=== PATIENT | male | born 1960 ===

== ENCOUNTER 2019-07-23 11:10 | Emergency (ER) | payer SELFPAY ==
[2019-07-23] MEDS ORDERED: ASPIRIN 325 MG TAB PO ONE (11:18)
[2019-07-23 11:52] LABS: Basophils # (Auto) 0.1 K/mm3 (0.0-0.1); Basophils % (Auto) 2.2 % (0.0-1.8); Eosinophils % (Auto) 0.9 % (0.0-4.3); Hematocrit 28.3 % (35.5-45.6); Hemoglobin 8.5 gm/dl (11.8-15.2); Lymphocytes # (Auto) 0.8 K/mm3 (1.2-5.4); Lymphocytes % (Auto) 18.5 % (13.4-35.0); Mean Corpuscular HGB Conc 30 % (32-34); Monocytes # (Auto) 0.5 K/mm3 (0.0-0.8); Monocytes % (Auto) 10.3 % (0.0-7.3); Platelet Count 155 K/mm3 (140-440); Red Blood Count 4.79 M/mm3 (3.65-5.03)
--- NOTE | 2019-07-23 11:52 | XRay Report ---
CHEST 1 VIEW INDICATION: Chest Pain. COMPARISON: None. FINDINGS: Support devices: None. Heart: Within normal limits. Pulmonary vasculature: Mild central vascular prominence. Lungs/Pleura: No acute air space or interstitial disease. No pleural effusion. Additional findings: None. IMPRESSION: 1. No acute findings. Signer Name: Srini Draper MD Signed: 07/23/2019 11:48 AM Workstation Name: [id number]
[2019-07-23 11:54] LABS: Mean Corpuscular Volume 59 fl (84-94)
[2019-07-23 12:09] LABS: BUN/Creatinine Ratio 13; Blood Urea Nitrogen 8 mg/dL (9-20); Calcium 8.4 mg/dL (8.4-10.2); Hemolysis Index 2
--- NOTE | 2019-07-23 12:23 | Emergency Department Report ---
ED Chest Pain HPI - General Chief Complaint: Chest Pain Stated Complaint: CHESTPAIN/HTN Time Seen by Provider: 07/23/19 11:41 Source: EMS Mode of arrival: Stretcher Limitations: Language Barrier - History of Present Illness Initial Comments: 58-year-old male patient without significant past medical history presents with complaints of substernal chest pain x today. Patient states the pain started while he was at a meeting at work and was a 5/10 in severity and felt pressure-like. She was given aspirin at work and had 2 doses of nitroglycerin by EMS. Patient states his current pain as a 0/10 in severity. He denies any prior history of GA/CVA/DVT/PE, leg pain/swelling, shortness of breath. He admits to plane ride from [facility] on 07/18/2019. Patient also denies any family history of heart disease. He admits to intermittent dizziness for months that occurs mainly with bending over, but denies any vision changes, numbness/tingling/weakness in his limbs, confusion, slurred speech, or difficulty with ambulation. MD Complaint: chest pain -: Sudden - Related Data Allergies Allergy/AdvReac Type Severity Reaction Status Date / Time No Known Allergies Allergy Verified 07/23/19 11:18 Heart Score - HEART Score History: Moderately suspicious EKG: Normal Age: 45-65 Risk factors: No known risk factors Troponin: < normal limit HEART Score: 2 - Critical Actions Critical Actions: 0-3 pts:0.9-1.7%risk of adverse cardiac event.Candidate for discharge ED Review of Systems ROS: Stated complaint: CHESTPAIN/HTN Other details as noted in HPI Constitutional: denies: chills, fever Eyes: denies: eye pain, eye discharge, vision change ENT: denies: throat pain Respiratory: denies: cough, shortness of breath Cardiovascular: chest pain. denies: palpitations, orthopnea Gastrointestinal: denies: abdominal pain, nausea, vomiting Musculoskeletal: denies: back pain Neurological: denies: headache, weakness, paresthesias, abnormal gait Psychiatric: denies: anxiety, depression Hematological/Lymphatic: denies: easy bleeding, easy bruising ED Past Medical Hx - Past Medical History Previous Medical History?: No - Surgical History Past Surgical History?: No - Social History Smoking Status: Never Smoker Substance Use Type: Alcohol ED Physical Exam - General Limitations: Language Barrier General appearance: alert, in no apparent distress - Head Head exam: Present: atraumatic, normocephalic - Eye Eye exam: Present: normal appearance - ENT ENT exam: Present: mucous membranes moist - Neck Neck exam: Present: normal inspection - Respiratory Respiratory exam: Present: normal lung sounds bilaterally. Absent: respiratory distress - Cardiovascular Cardiovascular Exam: Present: regular rate, normal rhythm. Absent: systolic murmur, diastolic murmur, rubs, gallop - GI/Abdominal GI/Abdominal exam: Present: soft, normal bowel sounds - Extremities Exam Extremities exam: Present: normal inspection. Absent: calf tenderness (no swelling noted) - Back Exam Back exam: Present: normal inspection - Neurological Exam Neurological exam: Present: alert, oriented X3 - Psychiatric Psychiatric exam: Present: normal affect, normal mood - Skin Skin exam: Present: warm, dry, intact, normal color. Absent: rash ED Course Vital Signs 07/23/19 07/23/19 07/23/19 11:10 11:12 11:16 Temperature 98.4 F Pulse Rate 77 83 71 Respiratory 15 16 15 Rate Blood Pressure 153/76 169/86 Blood Pressure [Left] O2 Sat by Pulse 99 98 95 Oximetry 07/23/19 07/23/19 07/23/19 11:30 11:45 12:01 Temperature Pulse Rate 67 58 L 66 Respiratory 16 12 13 Rate Blood Pressure 149/84 144/82 152/92 Blood Pressure [Left] O2 Sat by Pulse 97 99 99 Oximetry 07/23/19 07/23/19 07/23/19 12:15 12:31 12:45 Temperature Pulse Rate 63 70 60 Respiratory 13 12 9 L Rate Blood Pressure 158/80 165/81 164/103 Blood Pressure [Left] O2 Sat by Pulse 98 98 99 Oximetry 07/23/19 07/23/19 07/23/19 13:01 13:15 13:30 Temperature Pulse Rate 53 L 60 62 Respiratory 13 18 13 Rate Blood Pressure 158/81 166/86 160/89 Blood Pressure [Left] O2 Sat by Pulse 94 98 98 Oximetry 07/23/19 07/23/19 07/23/19 13:45 14:00 14:23 Temperature Pulse Rate 59 L Respiratory 10 L Rate Blood Pressure 168/90 159/80 159/80 Blood Pressure [Left] O2 Sat by Pulse 99 98 Oximetry 07/23/19 07/23/19 07/23/19 14:31 14:45 15:01 Temperature Pulse Rate Respiratory Rate Blood Pressure 159/80 159/80 160/77 Blood Pressure [Left] O2 Sat by Pulse 98 96 98 Oximetry 07/23/19 07/23/19 07/23/19 15:15 15:30 15:45 Temperature Pulse Rate Respiratory Rate Blood Pressure 159/80 181/90 171/84 Blood Pressure [Left] O2 Sat by Pulse 98 99 97 Oximetry 07/23/19 07/23/19 07/23/19 16:00 16:15 16:31 Temperature Pulse Rate Respiratory Rate Blood Pressure 156/87 156/87 156/64 Blood Pressure [Left] O2 Sat by Pulse 99 99 99 Oximetry 07/23/19 07/23/19 07/23/19 16:45 17:01 17:15 Temperature 98.5 F Pulse Rate 57 L Respiratory 20 Rate Blood Pressure 156/64 156/64 Blood Pressure 156/64 [Left] O2 Sat by Pulse 98 99 100 Oximetry ED Medical Decision Making - Lab Data Result diagrams: 07/23/19 11:35 07/23/19 11:35 Lab Results 07/23/19 07/23/19 07/23/19 Range/Units 11:35 11:35 12:31 WBC 4.4 L (4.5-11.0) K/mm3 RBC 4.79 (3.65-5.03) M/mm3 Hgb 8.5 L (11.8-15.2) gm/dl Hct 28.3 L (35.5-45.6) % MCV 59 L (84-94) fl MCH 18 L (28-32) pg MCHC 30 L (32-34) % RDW 24.0 H (13.2-15.2) % Plt Count 155 (140-440) K/mm3 Lymph % (Auto) 18.5 (13.4-35.0) % Moody % (Auto) 10.3 H (0.0-7.3) % Eos % (Auto) 0.9 (0.0-4.3) % Baso % (Auto) 2.2 H (0.0-1.8) % Lymph # 0.8 L (1.2-5.4) K/mm3 Moody # 0.5 (0.0-0.8) K/mm3 Eos # 0.0 (0.0-0.4) K/mm3 Baso # 0.1 (0.0-0.1) K/mm3 Seg Neutrophils % 68.1 (40.0-70.0) % Seg Neutrophils # 3.0 (1.8-7.7) K/mm3 D-Dimer 382.19 H (0-234) ng/mlDDU Sodium 139 (137-145) mmol/L Potassium 3.7 (3.6-5.0) mmol/L Chloride 98.9 (98-107) mmol/L Carbon Dioxide 25 (22-30) mmol/L Anion Gap 19 mmol/L BUN 8 L (9-20) mg/dL Creatinine 0.6 L (0.8-1.5) mg/dL Estimated GFR > 60 ml/min BUN/Creatinine Ratio 13 % Glucose 118 H (75-100) mg/dL Calcium 8.4 (8.4-10.2) mg/dL Troponin T < 0.010 (0.00-0.029) ng/mL 07/23/19 Range/Units 15:47 WBC (4.5-11.0) K/mm3 RBC (3.65-5.03) M/mm3 Hgb (11.8-15.2) gm/dl Hct (35.5-45.6) % MCV (84-94) fl MCH (28-32) pg MCHC (32-34) % RDW (13.2-15.2) % Plt Count (140-440) K/mm3 Lymph % (Auto) (13.4-35.0) % Moody % (Auto) (0.0-7.3) % Eos % (Auto) (0.0-4.3) % Baso % (Auto) (0.0-1.8) % Lymph # (1.2-5.4) K/mm3 Moody # (0.0-0.8) K/mm3 Eos # (0.0-0.4) K/mm3 Baso # (0.0-0.1) K/mm3 Seg Neutrophils % (40.0-70.0) % Seg Neutrophils # (1.8-7.7) K/mm3 D-Dimer (0-234) ng/mlDDU Sodium (137-145) mmol/L Potassium (3.6-5.0) mmol/L Chloride (98-107) mmol/L Carbon Dioxide (22-30) mmol/L Anion Gap mmol/L BUN (9-20) mg/dL Creatinine (0.8-1.5) mg/dL Estimated GFR ml/min BUN/Creatinine Ratio % Glucose (75-100) mg/dL Calcium (8.4-10.2) mg/dL Troponin T < 0.010 (0.00-0.029) ng/mL - EKG Data EKG shows normal: sinus rhythm Rate: normal - EKG Data Interpretation: normal EKG - Radiology Data Radiology results: report reviewed CHEST 1 VIEW INDICATION: Chest Pain. COMPARISON: None. FINDINGS: Support devices: None. Heart: Within normal limits. Pulmonary vasculature: Mild central vascular prominence. Lungs/Pleura: No acute air space or interstitial disease. No pleural effusion. Additional findings: None. IMPRESSION: 1. No acute findings. CTA CHEST WITH CONTRAST INDICATION : chest pain, + dimer. TECHNIQUE: Axial imaging performed through the chest, with contrast bolus timing set to maximize opacification of the pulmonary arteries. Sagittal and coronal reformatted images. 3-plane MIP reformatted images were obtained. All CT scans at this location are performed using CT dose reduction for ALARA by means of automated exposure control. 100 mL of intravenous contrast administered. COMPARISON: AP chest performed earlier the same day FINDINGS: Bolus: Contrast bolus timing is adequate. PTE: No filling defect is present to suggest PTE. Mediastinum: Heart and great vessels appear normal. No pathologic mediastinal adenopathy. Lungs: Lungs are clear. Bones: Degenerative changes in the spine with nothing acute. Upper abdomen: Moderate to severe diffuse fatty infiltration of the liver. IMPRESSION: Negative for PTE. Clear lungs. Hepatic steatosis. - Medical Decision Making 58-year-old male patient without significant past medical history presents with complaints of substernal chest pain x today. He denies any current chest pain. Heart score = 1. Initial and repeat troponin and EKG are normal. Labs are normal. Blood pressure elevated, patient denies history of this. Pt is nontoxic appearing and states he feels well. He is stable for discharge home. Discussed importance of follow-up with primary care provider co ncerning his blood pressure and cardiology concerning his chest pain the next 2- 3 days. Discussed strict return precautions in detail with patient who verbalizes understanding. Critical care attestation.: If time is entered above; I have spent that time in minutes in the direct care of this critically ill patient, excluding procedure time. ED Disposition Clinical Impression: Elevated blood pressure reading Chest pain Qualifiers: Chest pain type: other chest pain Qualified Code(s): R07.89 - Other chest pain Disposition: TO HOME OR SELFCARE Is pt being admited?: No Condition: Stable Instructions: Chest Pain (ED), Heart Healthy Diet (ED), Hypertension (ED) Referrals: [facility] [Provider Group] - 2-3 Days WILLIAM WEINSTEIN MD [Staff Physician] - 2-3 Days
--- NOTE | 2019-07-23 15:01 | Cat Scan Report ---
CTA CHEST WITH CONTRAST INDICATION : chest pain, + dimer. TECHNIQUE: Axial imaging performed through the chest, with contrast bolus timing set to maximize opa cification of the pulmonary arteries. Sagittal and coronal reformatted images. 3-plane MIP reformatte d images were obtained. All CT scans at this location are performed using CT dose reduction for ALAR A by means of automated exposure control. 100 mL of intravenous contrast administered. COMPARISON: AP chest performed earlier the same day FINDINGS: Bolus: Contrast bolus timing is adequate. PTE: No filling defect is present to suggest PTE. Mediastinum: Heart and great vessels appear normal. No pathologic mediastinal adenopathy. Lungs: Lungs are clear. Bones: Degenerative changes in the spine with nothing acute. Upper abdomen: Moderate to severe diffuse fatty infiltration of the liver. IMPRESSION: Negative for PTE. Clear lungs. Hepatic steatosis. Signer Name: Markus Nari Jr, MD Signed: 07/23/2019 2:57 PM Workstation Name: [id number]
[2019-07-23 17:15] VITALS: BP 156/64
== END 2019-07-23 18:02 | disposition home or self-care (01) ==
LOC: ED 11:10
DX: R07.89 Other chest pain (principal); R03.0 Elevated blood-pressure reading, without diagnosis of hypertension
CPT/HCPCS: 36415; 71045; 71275; 80048; 84484; 85025; 85379; 93005; 93010; 99285; Q9967